=== PATIENT | female | born 1940 | race Caucasian/White ===

== ENCOUNTER 2017-07-12 14:48 | Inpatient (IN) | payer OTHER, MEDICAID ==
[~2017-07-12] VITALS: Ht 154.9 cm; Wt 69.9 kg
[2017-07-12 15:15] VITALS: BP 123/61
--- NOTE | 2017-07-12 15:50 | NUR ---
PATIENT BIB [facility] FROM [facility] WITH C/O TACHYCARDIA HR 133, FEVER 100.3 HX; SEPSIS, DM, KOREAN SPEAKING, AAOX4, LUNGS CLEAR BL; ST ON MONITOR; PT DENIES CP, SOB, OR COUGH AT THIS TIME; DENIES N/V/D; SKIN IS PINK/WARM/DRY; PATIENT STATES PAIN OF 0/10 AT THIS TIME; VSS; PATIENT POSITIONED FOR COMFORT; HOB ELEVATED; BEDRAILS UP X2; BED DOWN. ER MD MADE AWARE OF PT STATUS.
[2017-07-12] MEDS ORDERED: PIPERACILLIN/TAZOBACTAM 3.375 GM in DEXTROSE 5% 50 ML IV ONE (17:15)
[2017-07-12] MEDS ORDERED: NACL 0.9% 2,100 ML IV ONE (17:15)
[2017-07-12 18:07] LABS: HEMATOCRIT 32.8 % (36-48); HEMOGLOBIN 10.6 g/dL (12.0-16.0); MEAN CORPUSCULAR HEMOGLOBIN 27 pg (27-31); MEAN CORPUSCULAR HGB CONC 32 g/dL (33-37); MEAN CORPUSCULAR VOLUME 84 fL (80-94); PLATELET COUNT (AUTO) 413 K/uL (140-450); RED BLOOD CELL COUNT(AUTO) 3.91 MIL/uL (4.20-5.40); RED CELL DISTRIBUTION WIDTH 13.1 % (11.6-13.7); WHITE BLOOD COUNT (AUTO) 16.7 K/uL (4.8-10.8)
[2017-07-12 18:14] LABS: BILIRUBIN,URINE NEGATIVE (NEGATIVE); BLOOD, URINE TRACE-L (NEGATIVE); LEUKOCYTE ESTERASE ,URINE TRACE (NEGATIVE); NITRITE, URINE NEGATIVE (NEGATIVE); UGLUCOSE NEGATIVE (NEGATIVE)
[2017-07-12 18:16] LABS: APPEARANCE,URINE HAZY (CLEAR); COLOR,URINE STRAW (YELLOW)
[2017-07-12 18:26] LABS: LYMPHOCYTES % (MANUAL) 5 % (20-46); MONOCYTES % (MANUAL) 9 % (5-12); PROMYELOCYTES % 1 % (0-0)
[2017-07-12 18:33] LABS: RBC,URINE NONE SEEN /HPF (0-5)
[2017-07-12] MEDS ORDERED: PIPERACILLIN/TAZOBACTAM 3.375 GM VIAL IV ONE (18:34)
[2017-07-12 18:42] LABS: PROTHROMBIN TIME 10.6 secs (10.8-13.4)
[2017-07-12 18:53] LABS: ANION GAP 7.8 (8-16); ASPARTATE AMINOTRANSFERASE 21 U/L (15-37); CARBON DIOXIDE 33.2 mmol/L (21-32); CHLORIDE 99 mmol/L (98-107); CREATININE 2.1 mg/dL (0.6-1.3); GLUCOSE 99 mg/dL (74-106); LIPASE 111 U/L (73-393); SODIUM SERUM 136 mmol/L (136-145); TOTAL BILIRUBIN 0.3 mg/dL (0.0-1.0); UREA NITROGEN, BLOOD 35 mg/dL (7-18)
[2017-07-12 19:05] LABS: CREATINE KINASE MB 0.3 ng/mL (0-3.6)
--- NOTE | 2017-07-12 19:10 | NUR ---
REPORT GIVEN TO JAIRO BETHEA FOR CONTINUE OF CARE, PT IS IN STABLE CONDITION AT THIS TIME.
[2017-07-12] MEDS: NACL 0.9% 1,000 ML IV SCH ×2 (21:13→22:53)
[2017-07-12] MEDS ORDERED: ACETAMINOPHEN 325 MG TAB PO PRN (21:15)
[2017-07-12] MEDS ORDERED: HYDROcodone/APAP 7.5/325 MG 1 TAB PO PRN (21:15)
[2017-07-12] MEDS ORDERED: ONDANSETRON 4 MG/2 ML VIAL IVP PRN (21:15)
[2017-07-12] MEDS ORDERED: DEXTROSE 50% 50 ML SYR IVP PRN (21:55)
[2017-07-12 22:10] VITALS: BP 151/59
[2017-07-12] MEDS ORDERED: LACTULOSE 20 GM/30 ML UDC PO PRN (22:10)
[2017-07-12] MEDS ORDERED: ALBUTEROL SULFATE/IPRATROPIU 3 ML SOL IH PRN (22:10)
--- NOTE | 2017-07-12 22:10 | NUR ---
Admitted from ER TO TELEMETRY UNIT , with chief complaint of ABDOMINAL PAIN, FEVER , 76 y/o ,Female, Cooperative, AWAKE, A/OX4 X4, RESPIRATION EVEN AND UNLABORED. ON 02 AT 2 LITERS VIA N/C, SATURATING 98%. ABDOMEN SOFT, DISTENDED. STATED ABLE TO HAVE BM EVERYDAY. HEAD TO TOE ASSESSMENT DONE WITH JAIRO LOMBARDI, SKIN INTACT. NOTED SMALL BRUISES AT THE RIGHT ARM DUE TO IV, PATIENT WAS CONFINED IN [facility] A MONTH AGO, WAS TRANSFERRED TO [facility] FOR PT TREATMENT, STAYED THERE FOR ALMOST THREE WEEKS AND WAS ABOUT TO GO HOME TOMORROW. PATIENT USES CANE AND WALKER TO AMBULATE. PLAN OF CARE DISCUSSED WITH PATIENT AND DAUGHTER, VERBALIZED UNDERSTANDING. DENIES PAIN 0/10. ST ON TELEMONITORING, HR -112. SAFETY MEASURES ENFORCED, FALL RISK. AFEBRILE AT THIS TIME. oriented to call light, bed, phone,television, bathroom, smoking policy,visiting hours, procedures, ID bracelet on. Belongings list checked.
--- NOTE | 2017-07-12 22:10 | NUR ---
Patient will be admitted to care of DR. WHITNEY. Admited to TELEMETRY UNIT. Will go to room 121A. Belongings list completed. BED SIDE REPORT GIVEN TO JAIRO WOLFE. DAUGHTER AT BED SIDE AND PT STABLE UPON ADMISSION.
[2017-07-12] MEDS ORDERED: ALBU3SOL21 IH (22:22)
[2017-07-12] MEDS ORDERED: DULO30EC PO (22:22)
[2017-07-12] MEDS ORDERED: INSU10SU2 SC (22:22)
[2017-07-12] MEDS ORDERED: NOVR SUBQ (22:22)
[2017-07-12] MEDS ORDERED: SIME80CT70 PO ×2 (22:22→23:08)
[2017-07-12] MEDS ORDERED: LACT10SO1 PO (22:23)
[2017-07-12] MEDS ORDERED: SITA100T8 PO (22:23)
[2017-07-12] MEDS ORDERED: FURO-570 PO (22:23)
[2017-07-12] MEDS ORDERED: BROM3SOL OP (22:23)
[2017-07-12] MEDS ORDERED: FAMO-90 PO (22:23)
[2017-07-12] MEDS ORDERED: SIMV20TA1 PO (22:23)
[2017-07-12] MEDS ORDERED: CLOP75TA26 PO (22:23)
[2017-07-12] MEDS ORDERED: XALOS OP (22:23)
[2017-07-12] MEDS ORDERED: DOCU-299 PO (22:23)
[2017-07-12] MEDS ORDERED: GLIP5TAB4 PO (22:23)
[2017-07-12] MEDS ORDERED: BRIM5SOL3 OP (22:23)
[2017-07-12] MEDS ORDERED: AMLO5TAB PO (22:23)
[2017-07-12] MEDS ORDERED: PENT400T3 PO (22:23)
[2017-07-12] MEDS ORDERED: GABA250S1 PO (22:23)
[2017-07-12] MEDS ORDERED: BRIN10SU OP (22:24)
[2017-07-12] MEDS ORDERED: MULT-1328 PO (23:13)
[2017-07-12 23:18] LABS: CHOL/HDL RATIO 3.8 (1-4.5); FREE T4 (FREE THYROXINE) 0.93 ng/dL (0.76-1.46); MAGNESIUM 1.6 mg/dL (1.8-2.4); PHOSPHORUS 2.1 mg/dL (2.5-4.9); THYROID STIMULATING HORMONE 1.09 uIU/mL (0.34-3.74)
[2017-07-13] MEDS ORDERED: SIMETHICONE 40 MG/0.6 ML PO SCH
--- NOTE | 2017-07-13 | NUR ---
PLACED A BEDSIDE COMMODE, INSTRUCTED PATIENT TO CALL NURSE FOR ASSISTANCE WHEN GETTING OUT OF BED TO GO TO THE COMMODE.
[2017-07-13] MEDS: MAG SULF 2000 MG/WATER PREMIX 100 ML IV SCH ×2 (02:18→04:31)
--- NOTE | 2017-07-13 02:18 | NUR ---
MAGNESIUM LEVEL - 1.6, MG RIDER STARTED BY JAIRO LOMBARDI ORDERED.
[2017-07-13] MEDS ORDERED: MAG SULF 2000 MG/WATER PREMIX 50 ML IV ONE (02:28)
[2017-07-13 04:00] VITALS: BP 144/61
--- NOTE | 2017-07-13 04:00 | NUR ---
SLEEPING COMFORTABLY IN BED.
[2017-07-13] MEDS ORDERED: PENTOXIFYLLINE 400 MG TABER PO SCH (05:00)
[2017-07-13] MEDS ORDERED: NON-FORMULARY ITEM (Brimonidine Tartrate* (Alphagan P 0.1% Ophthalmic Soln*) 1 DROP) OP SCH (05:00)
[2017-07-13] MEDS ORDERED: BRINZOLAMIDE OP SCH (05:00)
[2017-07-13] MEDS: BLOOD GLUCOSE MONITORING 1 DEV DEV FS SCH ×4 (05:56→21:32)
[2017-07-13] MEDS ORDERED: SIMETHICONE 80 MG TAB.CHEW PO PRN (06:00)
[2017-07-13] MEDS: INSULIN LISPRO SLIDING SCALE 100 UNITS/ML VIAL SUBQ PRN ×4 (06:01→21:34)
--- NOTE | 2017-07-13 06:10 | NUR ---
TAKEN TO RADIOLOGY FOR CT OF ABDOMEN AND PELVIS VIA W/C ACCOMPANIED BY SOC ANALYST.
--- NOTE | 2017-07-13 06:45 | NUR ---
BACK FROM RADIOLOGY. WILL ENDORSE TO AM NURSE FOR CONTINUITY OF CARE.
[2017-07-13 06:52] LABS: HEMATOCRIT 28.7 % (36-48); HEMOGLOBIN 9.3 g/dL (12.0-16.0); MEAN CORPUSCULAR HEMOGLOBIN 28 pg (27-31); MEAN CORPUSCULAR HGB CONC 33 g/dL (33-37); MEAN CORPUSCULAR VOLUME 86 fL (80-94); PLATELET COUNT (AUTO) 335 K/uL (140-450); RED BLOOD CELL COUNT(AUTO) 3.36 MIL/uL (4.20-5.40); RED CELL DISTRIBUTION WIDTH 13.2 % (11.6-13.7); WHITE BLOOD COUNT (AUTO) 18.1 K/uL (4.8-10.8)
[2017-07-13] MEDS: NACL 0.9% 1,000 ML IV SCH ×2 (07:13→17:48)
[2017-07-13 07:22] LABS: ANION GAP 12.2 (8-16); CARBON DIOXIDE 28.6 mmol/L (21-32); CHLORIDE 100 mmol/L (98-107); GLUCOSE 145 mg/dL (74-106); POTASSIUM 3.8 mmol/L (3.5-5.1); SODIUM SERUM 137 mmol/L (136-145); UREA NITROGEN, BLOOD 28 mg/dL (7-18)
--- NOTE | 2017-07-13 07:30 | NUR ---
RECEIVED PT FROM REVENUE COORDINATOR RN. PT SLEEPING BUT EASILY AWAKING BY INITIAL ASSESSMENT, ON O2 NC 2L/MIN, NO S/S OF RESPIRATORY DISTRESS NOTED. IV SITE INTACT AND PATENT WITH NS AT 100 MLS/HR, PT ABLE TO MOVE ALL HER EXTREMITIES, CALL LIGHT IN REACH, WILL CONTINUE TO MONITOR.
[2017-07-13 07:32] LABS: PHOSPHORUS 3.6 mg/dL (2.5-4.9)
[2017-07-13 08:00] VITALS: BP 148/60
[2017-07-13 08:44] LABS: LYMPHOCYTES % (MANUAL) 10 % (20-46); MONOCYTES % (MANUAL) 7 % (5-12)
[2017-07-13] MEDS ORDERED: INSULIN NPH HUM/REG INSULIN HM 100 UNIT/ML 10 ML VIAL SQ SCH ×2 (09:00)
[2017-07-13] MEDS ORDERED: DOCUSATE SODIUM 100 MG GELCAP PO SCH (09:00)
[2017-07-13] MEDS ORDERED: BROMFENAC SODIUM OP SCH (09:00)
--- NOTE | 2017-07-13 09:05 | NUR ---
PATIENT HAS BEEN SCREENED AND CATEGORIZED HIGH NUTRITION RISK. PATIENT WILL BE SEEN WITHIN 1-2 DAYS OF ADMISSION. 07/12/18-07/13/[address]
[2017-07-13] MEDS: GABAPENTIN 300 MG CAP PO SCH (09:19)
[2017-07-13] MEDS: FUROSEMIDE 40 MG TAB PO SCH ×2 (09:19→20:57)
[2017-07-13] MEDS: DOCUSATE SODIUM 100 MG GELCAP PO SCH ×2 (09:19→20:56)
[2017-07-13] MEDS: MULTIVITAMIN/MINERALS 1 TAB PO SCH (09:19)
[2017-07-13] MEDS: CLOPIDOGREL 75 MG TAB PO SCH (09:20)
[2017-07-13] MEDS: DULoxetine 30 MG CAPDR PO SCH (09:20)
[2017-07-13] MEDS: amLODIPine 5 MG TAB PO SCH (09:20)
[2017-07-13] MEDS: LACTOBACILLUS RHAMNOSUS GG 1 EACH CAP PO SCH (09:20)
[2017-07-13] MEDS: FAMOTIDINE 20 MG TAB PO SCH (09:20)
[2017-07-13] MEDS: SODIUM PHOS / POTASSIUM PHOS 1 PKT PDR PO SCH (09:21)
[2017-07-13] MEDS: SIMVASTATIN 20 MG TAB PO SCH (09:25)
[2017-07-13] MEDS: glipiZIDE 5 MG TAB PO SCH ×2 (09:26→20:57)
[2017-07-13] MEDS ORDERED: TAMSULOSIN 0.4 MG CAP PO SCH (11:00)
--- NOTE | 2017-07-13 11:34 | NUR ---
FINGER BS 354, SLIDING SCALE INSULIN 10 UNITS GIVEN ORDERED.
--- NOTE | 2017-07-13 11:53 | NUR ---
OFFERED PT BEDPAN, PT HAD CLEAR YELLOW URINE 250 MLS
[2017-07-13 12:00] VITALS: BP 140/58
--- NOTE | 2017-07-13 12:58 | NUR ---
lunch tray served, pt's son at bedside, updated pt's condition.
[2017-07-13] MEDS ORDERED: BISACODYL 5 MG TABEC PO PRN (13:35)
--- NOTE | 2017-07-13 13:35 | NUR ---
FAXED INITIAL REVIEW TO [facility] [phone] PHONE JAEL [phone] SPOKE JAEL FROM [facility]. SHE SAID TO ALSO FAX REVIEW TO [facility] [address] FAX [phone] PHONE [phone]
[2017-07-13] MEDS: metroNIDAZOLE 500 MG/NS PREMIX 100 ML IV SCH ×2 (14:17→20:13)
--- NOTE | 2017-07-13 15:08 | NUR ---
PT RESTING IN BED, NO S/S OF RESPIRATORY DISTRESS NOTED.
--- NOTE | 2017-07-13 15:59 | NUR ---
07/13/2017 RD INITIAL ASSESSMENT COMPLETED PT TO CONSUME >75% EST KCAL AND PRO NEEDS WITHIN 2-3 DAYS NUTRITION RELATED LABS WNL WITHIN 2-3 DAYS DIETITIAN WILL MONITOR PO INTAKE, NUTRITION-RELATED LABS TRENDING WNL, SKIN INTEGRITY, WEIGHTS, GI FUNCTION. DISCHARGE PLAN:PATEIENT SHOULD BE ABLE TO CONTINUE WITH CURRENT DIET UPON DISCHARGE. ANALY SCHWARTZ RD
[2017-07-13 16:00] VITALS: BP 132/58
[2017-07-13] MEDS ORDERED: BISACODYL 5 MG TABEC PO SCH (17:00)
[2017-07-13] MEDS ORDERED: INSULIN NPH HUM/REG INSULIN HM 100 UNIT/ML 10 ML VIAL SUBQ SCH (17:00)
--- NOTE | 2017-07-13 17:00 | NUR ---
FINGER BS CHECKED, SLIDING SCALE INSULIN 10 UNITS SUBQ GIVEN ORDER.
--- NOTE | 2017-07-13 18:30 | NUR ---
PT'S DAUGHTER AND SON AT BEDSIDE, ASSISTED PT TO BATHROOM.
--- NOTE | 2017-07-13 18:52 | NUR ---
[facility] TRANSPORTATION TEAM LEFT UNIT. Addendum: 07/13/17 at 1858 by Nichol Ngo RN ROSALINA HEATH
--- NOTE | 2017-07-13 19:00 | NUR ---
REPORT GIVEN TO SUPERVISOR POLISHING RN. PT VITALS STABLE AT THIS TIME.
--- NOTE | 2017-07-13 19:00 | NUR ---
Patient's Plan of Care was discussed and reviewed with HELPER/DRIVER: YANETH GUSTAFSON
--- NOTE | 2017-07-13 19:01 | NUR ---
RECD. RESTING IN BED, AWAKE, A/OX4. RESPIRATION EVEN AND UNLABORED. ON AT 2 LITERS VIA N/C 02 SAT - 98%. IV OF NS AT 100 ML/HR INFUSING, RIGHT FOREARM G20. SAFETY MEASURES ENFORCED. PATIENT IS INCONTINENT. INSTRUCTED TO CALL NURSE BEFORE GETTING OOB, ORIENTED ON HOW TO USE CALL LIGHT. PLAN OF CARE FOR THE SHIFT DISCUSSED WITH PATIENT AND DAUGHTER, VERBALIZED UNDERSTANDING. DENIES PAIN 0/10.
[2017-07-13 20:00] VITALS: BP 155/52
--- NOTE | 2017-07-13 21:00 | NUR ---
INFORMED DR. WAGNER, PATIENT DAUGHTER WANTS HUMULIN 70/30 THAT THE PATIENT TAKES AT HOME TO BE ORDERED HERE INSTEAD OF THE NPH.
--- NOTE | 2017-07-13 21:30 | NUR ---
ATE 100% OF SNACK FOR THE NIGHT.
[2017-07-13] MEDS: INSULIN NPH HUMAN ISOPHANE 100 UNIT/ML VIAL SUBQ SCH (21:37)
[2017-07-14] VITALS: BP 152/50
[2017-07-14] MEDS: NACL 0.9% 1,000 ML IV SCH (03:28)
[2017-07-14 04:00] VITALS: BP 116/52
[2017-07-14] MEDS: metroNIDAZOLE 500 MG/NS PREMIX 100 ML IV SCH ×2 (04:03→13:12)
[2017-07-14 05:57] LABS: BASOPHILS # (AUTO) 0.1 K/uL (0.00-0.22); BASOPHILS % (AUTO) 0.7 % (0.0-2.0); EOSINOPHILS # (AUTO) 0.1 K/uL (0-0.4); EOSINOPHILS % (AUTO) 1.1 % (0.0-4.0); HEMATOCRIT 26.4 % (36-48); HEMOGLOBIN 8.7 g/dL (12.0-16.0); LYMPHOCYTES # (AUTO) 1.5 K/uL (2.5-16.5); LYMPHOCYTES % (AUTO) 11.7 % (20.5-51.1); MEAN CORPUSCULAR HEMOGLOBIN 28 pg (27-31); MEAN CORPUSCULAR HGB CONC 33 g/dL (33-37); MEAN CORPUSCULAR VOLUME 85 fL (80-94); MONOCYTES # (AUTO) 1.2 K/uL (0.8-1.0); MONOCYTES % (AUTO) 9.4 % (1.7-9.3); NEUTROPHILS # (AUTO) 9.7 K/uL (1.8-7.7); NEUTROPHILS % (AUTO) 77.1 % (42.2-75.2); PLATELET COUNT (AUTO) 310 K/uL (140-450); RED BLOOD CELL COUNT(AUTO) 3.11 MIL/uL (4.20-5.40); RED CELL DISTRIBUTION WIDTH 13.5 % (11.6-13.7); WHITE BLOOD COUNT (AUTO) 12.6 K/uL (4.8-10.8)
--- NOTE | 2017-07-14 06:00 | NUR ---
FOLLOW UP WITH DR. WAGNER REGARDING ORDER FOR INSULIN 70/30, STATED ALREADY PUT IN THE MED RECONCILIATION.
[2017-07-14 06:18] LABS: ANION GAP 11.1 (8-16); CARBON DIOXIDE 29.9 mmol/L (21-32); CHLORIDE 101 mmol/L (98-107); CREATININE 1.9 mg/dL (0.6-1.3); GLUCOSE 327 mg/dL (74-106); SODIUM SERUM 138 mmol/L (136-145); UREA NITROGEN, BLOOD 30 mg/dL (7-18)
[2017-07-14 06:24] LABS: MAGNESIUM 2.8 mg/dL (1.8-2.4); PHOSPHORUS 4.5 mg/dL (2.5-4.9)
[2017-07-14] MEDS: BLOOD GLUCOSE MONITORING 1 DEV DEV FS SCH ×4 (06:32→21:57)
[2017-07-14] MEDS: INSULIN NPH HUMAN ISOPHANE 100 UNIT/ML VIAL SUBQ SCH ×2 (06:44→22:05)
[2017-07-14] MEDS: INSULIN LISPRO SLIDING SCALE 100 UNITS/ML VIAL SUBQ PRN ×4 (06:46→21:59)
--- NOTE | 2017-07-14 07:05 | NUR ---
ABLE TO SLEEP WELL. CONDITION REMAIN STABLE. WILL ENDORSE TO AM NURSE FOR CONTINUITY OF CARE.
--- NOTE | 2017-07-14 07:06 | NUR ---
RECEIVED REPORT FROM CAMP HOUSEKEEPER NURSE YANETH AT BEDSIDE FOR CONTINUITY OF CARE. PT IN STABLE CONDITION.
[2017-07-14 08:00] VITALS: BP 139/50
[2017-07-14] MEDS: DOCUSATE SODIUM 100 MG GELCAP PO SCH ×3 (09:00→22:09)
[2017-07-14] MEDS ORDERED: INSULIN NPH HUM/REG INSULIN HM 100 UNIT/ML 10 ML VIAL SUBQ SCH (09:00)
[2017-07-14] MEDS: DULoxetine 30 MG CAPDR PO SCH (09:11)
[2017-07-14] MEDS: SODIUM PHOS / POTASSIUM PHOS 1 PKT PDR PO SCH (09:11)
[2017-07-14] MEDS: TAMSULOSIN 0.4 MG CAP PO SCH (09:11)
[2017-07-14] MEDS: LACTOBACILLUS RHAMNOSUS GG 1 EACH CAP PO SCH (09:12)
[2017-07-14] MEDS: FAMOTIDINE 20 MG TAB PO SCH (09:12)
[2017-07-14] MEDS: GABAPENTIN 300 MG CAP PO SCH (09:12)
[2017-07-14] MEDS: SIMVASTATIN 20 MG TAB PO SCH (09:12)
[2017-07-14] MEDS: glipiZIDE 5 MG TAB PO SCH ×2 (09:13→22:11)
[2017-07-14] MEDS: MULTIVITAMIN/MINERALS 1 TAB PO SCH (09:13)
[2017-07-14] MEDS: CLOPIDOGREL 75 MG TAB PO SCH (09:13)
[2017-07-14] MEDS: FUROSEMIDE 40 MG TAB PO SCH ×2 (09:14→22:12)
[2017-07-14] MEDS: amLODIPine 5 MG TAB PO SCH (09:14)
[2017-07-14] MEDS: PENTOXIFYLLINE 400 MG TABER PO SCH (09:34)
--- NOTE | 2017-07-14 09:40 | NUR ---
CALLED PT'S SON CRUZ [phone]. SON WILL GO HOME AND BRING PT'S EYE DROPS FROM HOME.
--- NOTE | 2017-07-14 11:00 | NUR ---
PT'S SON CRUZ CAME AND BROUGHT HOME EYE DROPS. DROPPED OF MEDS TO PHARMACY.
[2017-07-14 12:00] VITALS: BP 162/63
--- NOTE | 2017-07-14 12:30 | NUR ---
PT STATED SHE COULD NOT EAT LUNCH TRAY. SAID "FOOD IS HARD TO EAT." AND REQUESTED SOFT FOOD DIET. REPORTED TO DR. CHOUDHARY TO CHANGE DIET TO MECHANICAL SOFT.
[2017-07-14] MEDS: PATIENTS OWN EENT OP SCH ×3 (14:12→17:32)
--- NOTE | 2017-07-14 15:36 | NUR ---
[facility] [phone] PHONE [phone] CM ANY FAXED CONCURRENT REVIEW TO [facility] [phone] PHON [phone] I SPOKE WITH VARGHESE AT [facility], AND HE SAID OF 07/15/17, THIS PATIENT WILL NO LONGER BE WITH [facility]. I CALLED CHAD, NEWS WIRE PHOTO OPERATOR AND INFORMED HER.
[2017-07-14 16:00] VITALS: BP 138/62
--- NOTE | 2017-07-14 17:43 | NUR ---
PT RESTING IN BED WITH NO SIGNS OF DISTRESS. ADMINISTERED SCHEDULED MEDS AND EYE DROPS. BS WAS 267. COVERED INSULIN PER SLIDING SCALE. PT TOLERATED MEDS WELL. PT DENIES PAIN. BED IN LOW POSITION, WHEELS LOCKED, CALL LIGHT WITHIN REACH. WILL CONTINUE TO MONITOR.
--- NOTE | 2017-07-14 19:28 | NUR ---
ENDORSED PT TO [place] BAND WRAPPER NURSE FARHANA AT BEDSIDE FOR CONTINUITY OF CARE. PT'S DAUGHTER AT BEDSIDE. EXPLAINED ISOLATION STATUS FOR PT DUE TO URINE POSITIVE FOR E.COLI, MDRO AND ESBL. PT AND DAUGHTER VERBALIZED UNDERSTANDING. PT IN STABLE CONDITION.
--- NOTE | 2017-07-14 19:30 | NUR ---
RECEIVED PT FROM KARLEY RN PT CROATIAN SPEAKER AAOX3 ON TELEMETRY ST IV ON LEFT ARM INFUSING WELL NOT DISTRESS NOTED AT THIS TIME PT ON CONTACT ISOLATION FOR ESBL ON URINE RELATIVES AT BED SIDE INITIAL ASSESSMENT DONE
[2017-07-14 20:00] VITALS: BP 162/65
--- NOTE | 2017-07-14 21:30 | NUR ---
BLOOD SUGAR TEST 205 COVERAGE WITH HUMALOG SUB Q 4 UNITS ON RT ARM
[2017-07-14] MEDS: LATANOPROST 0.005% OP 2.5 ML BTL OP SCH (22:13)
[2017-07-15] VITALS: BP 127/43
--- NOTE | 2017-07-15 | NUR ---
PT SLEEPING ON 02 2 LTS VIA NC ON TELEMETRY ST REPOSITIONED Q2H NOT DISTRESS NOTED
[2017-07-15] MEDS ORDERED: PIPERACILLIN/TAZOBACTAM 2.25 GM VIAL IV ONE (00:42)
[2017-07-15] MEDS: PIPER/TAZO 2.25GM/D5W PREMIX 50 ML IV SCH ×4 (00:50→18:10)
[2017-07-15 04:00] VITALS: BP 152/70
--- NOTE | 2017-07-15 04:00 | NUR ---
SPONGE BATH GIVEN LINEN CHANGED ON TELE ST NOTDISTRESS NOTED
[2017-07-15] MEDS: NACL 0.9% 1,000 ML IV SCH ×2 (05:00→23:49)
[2017-07-15] MEDS: BLOOD GLUCOSE MONITORING 1 DEV DEV FS SCH ×4 (05:36→21:00)
--- NOTE | 2017-07-15 05:36 | NUR ---
PT HAS A BLOOD SUGAR LOW 58 AND PT ASYMPTOMATIC JUICE GIVEN AND WILL BE MONITORING
[2017-07-15 05:54] LABS: BASOPHILS % (AUTO) 0.4 % (0.0-2.0); EOSINOPHILS # (AUTO) 0.2 K/uL (0-0.4); EOSINOPHILS % (AUTO) 1.9 % (0.0-4.0); HEMATOCRIT 26.3 % (36-48); HEMOGLOBIN 8.2 g/dL (12.0-16.0); LYMPHOCYTES # (AUTO) 1.6 K/uL (2.5-16.5); LYMPHOCYTES % (AUTO) 15.3 % (20.5-51.1); MEAN CORPUSCULAR HEMOGLOBIN 27 pg (27-31); MEAN CORPUSCULAR HGB CONC 31 g/dL (33-37); MEAN CORPUSCULAR VOLUME 86 fL (80-94); MONOCYTES # (AUTO) 0.9 K/uL (0.8-1.0); MONOCYTES % (AUTO) 8.4 % (1.7-9.3); NEUTROPHILS # (AUTO) 7.9 K/uL (1.8-7.7); PLATELET COUNT (AUTO) 344 K/uL (140-450); RED BLOOD CELL COUNT(AUTO) 3.08 MIL/uL (4.20-5.40); RED CELL DISTRIBUTION WIDTH 13.2 % (11.6-13.7); WHITE BLOOD COUNT (AUTO) 10.6 K/uL (4.8-10.8)
--- NOTE | 2017-07-15 06:10 | NUR ---
AFTER HJUICE TAKENBLOODSUGAR TAKEN IS [address] NOT DISTRESS NOTE
[2017-07-15] MEDS: INSULIN NPH HUMAN ISOPHANE 100 UNIT/ML VIAL SUBQ SCH ×2 (06:30→22:15)
[2017-07-15 06:43] LABS: MAGNESIUM 2.1 mg/dL (1.8-2.4); PHOSPHORUS 3.4 mg/dL (2.5-4.9)
[2017-07-15 06:46] LABS: ANION GAP 11.9 (8-16); CARBON DIOXIDE 27.6 mmol/L (21-32); CHLORIDE 104 mmol/L (98-107); CREATININE 1.6 mg/dL (0.6-1.3); GLUCOSE 69 mg/dL (74-106); POTASSIUM 3.5 mmol/L (3.5-5.1); SODIUM SERUM 140 mmol/L (136-145); UREA NITROGEN, BLOOD 28 mg/dL (7-18)
--- NOTE | 2017-07-15 07:30 | NUR ---
RECEIVED PT FROM HOP FARM WORKER RN. PT IS AAOX4, ON TELEMETRY, O2 AT 2L VIA NC. SINUS TACHY. NO S/S OF ACUTE DISTRESS AT THIS TIME. IV NOTED ON LEFT FA, INFUSING WELL, ASYMPTOMATIC. PT ON CONTACT ISOLATION FOR ESBL MDRO IN URINE. INITIAL ASSESSMENT DONE, DISCUSSED PLAN OF CARE WITH PT, PT VERBALIZED UNDERSTANDING. BED IN LOWEST POSITION. ALL SAFETY PRECAUTIONS MET. WILL CONTINUE TO MONITOR.
[2017-07-15 08:00] VITALS: BP 169/65
[2017-07-15] MEDS: DOCUSATE SODIUM 100 MG GELCAP PO SCH ×3 (09:00→22:05)
[2017-07-15] MEDS: PATIENTS OWN EENT OP SCH ×7 (09:08→17:00)
[2017-07-15] MEDS: SODIUM PHOS / POTASSIUM PHOS 1 PKT PDR PO SCH (09:09)
[2017-07-15] MEDS: CLOPIDOGREL 75 MG TAB PO SCH (09:11)
[2017-07-15] MEDS: LACTOBACILLUS RHAMNOSUS GG 1 EACH CAP PO SCH (09:11)
[2017-07-15] MEDS: glipiZIDE 5 MG TAB PO SCH (09:11)
[2017-07-15] MEDS: FUROSEMIDE 40 MG TAB PO SCH ×2 (09:11→22:05)
[2017-07-15] MEDS: DULoxetine 30 MG CAPDR PO SCH (09:12)
[2017-07-15] MEDS: TAMSULOSIN 0.4 MG CAP PO SCH (09:12)
[2017-07-15] MEDS: GABAPENTIN 300 MG CAP PO SCH (09:12)
[2017-07-15] MEDS: FAMOTIDINE 20 MG TAB PO SCH (09:13)
[2017-07-15] MEDS: SIMVASTATIN 20 MG TAB PO SCH (09:13)
[2017-07-15] MEDS: MULTIVITAMIN/MINERALS 1 TAB PO SCH (09:13)
[2017-07-15] MEDS: amLODIPine 5 MG TAB PO SCH (09:13)
--- NOTE | 2017-07-15 09:20 | NUR ---
PT HAD 1 BM ON BEDSIDE COMMODE. BROWN SOFT STOOL. CLEANED PT, CHANGED CHUX. NO SOB NOTED.
--- NOTE | 2017-07-15 09:35 | NUR ---
MEDS HAS BEEN GIVEN. PT PREFER TO TAKE MEDS WITH [facility]. EYE DROPS GIVEN, 5 MIN APART FOR EACH EYE DROP. PT TOLERATED WELL.
[2017-07-15] MEDS: PENTOXIFYLLINE 400 MG TABER PO SCH (09:40)
[2017-07-15 12:00] VITALS: BP 137/55
[2017-07-15] MEDS: INSULIN LISPRO SLIDING SCALE 100 UNITS/ML VIAL SUBQ PRN ×3 (12:34→22:19)
--- NOTE | 2017-07-15 14:00 | NUR ---
PT IS SLEEPING. NO S/S OF DISTRESS NOTED.
--- NOTE | 2017-07-15 14:30 | NUR ---
CM NOTE CONCURRENT REVIEW FOR CRITERIA DONE
[2017-07-15 16:00] VITALS: BP 142/62
--- NOTE | 2017-07-15 18:00 | NUR ---
PT IS EATING DINNER, DAUGHTER AT BEDSIDE, NO S/S OF ACUTE DISTRESS NOTED.
[2017-07-15] MEDS: metFORMIN 850 MG TAB PO SCH (18:09)
--- NOTE | 2017-07-15 19:35 | NUR ---
ENDORSE PT TO ASSEMBLY ADJUSTER RN. PT IS IN STABLE CONDITION.
--- NOTE | 2017-07-15 19:36 | NUR ---
RECEIVED PT FROM NURSE IBRAHIM RN. PT AOX4, ON O2 2L/NC. BEDREST, NEEDS ASSISTNCE WITH BEDSIDE COMMODE, DIAPER AVAILABLE, SKIN INTACT. IVF ON RIGHT FA INFUSING WELL, INTACT AND PATENT. CONTACT PRECAUTIONS FOR ESBL MDRO. ON TELEMETRY-ST 109. RELATIVE AT BEDSIDE. BED IN LOWEST POSITION. CALL LIGHT WITHIN REACH. WILL CONTINUE TO MONITOR.
[2017-07-15 20:00] VITALS: BP 143/60
[2017-07-15] MEDS: LATANOPROST 0.005% OP 2.5 ML BTL OP SCH (22:04)
[2017-07-15] MEDS: MEROPENEM 1,000 MG in NACL 0.9% 100 ML IV SCH (22:04)
--- NOTE | 2017-07-15 22:15 | NUR ---
PT TOLERATED MEDICATION WELL. USED BEDSIDE COMMODE. JOHN WISEMAN ASSISTED PT. ON TELEMETRY UNIT - SINUS TACHYCARDIA.
[2017-07-16] VITALS: BP 144/50
--- NOTE | 2017-07-16 | NUR ---
PT ASLEEP AT THIS TIME. BED IN LOWEST POSITION. CALL LIGHT WITHIN REACH. WILL CONTINUE TO MONITOR.
--- NOTE | 2017-07-16 03:00 | NUR ---
PT SLEEPING AT THIS TIME. NO S/S OF RESPIRATORY DISTRESS OR DISCOMFORT. WILL CONTINUE TO MONITOR.
[2017-07-16 04:00] VITALS: BP 158/75
--- NOTE | 2017-07-16 06:09 | NUR ---
BLOOD GLUCOSE 237. WILL ADMINISTER INSULIN PER SLIDING SCALE ORDERED.
[2017-07-16] MEDS: BLOOD GLUCOSE MONITORING 1 DEV DEV FS SCH ×2 (06:16→11:36)
[2017-07-16] MEDS: INSULIN LISPRO SLIDING SCALE 100 UNITS/ML VIAL SUBQ PRN ×2 (06:30→12:00)
[2017-07-16] MEDS: INSULIN NPH HUMAN ISOPHANE 100 UNIT/ML VIAL SUBQ SCH (06:33)
--- NOTE | 2017-07-16 07:07 | NUR ---
PT WILL BE ENDORSED TO AM NURSE IN STABLE CONDITION TO CONTINUE CARE.
--- NOTE | 2017-07-16 07:08 | NUR ---
RECEIVED REPORT FROM DIRECTOR OF EARLY CHILDHOOD NURSE SHEELA AT BEDSIDE FOR CONTINUITY OF CARE. PT IS AWAKE AND ORIENTED. INTRODUCED SELF AND UPDATED BOARD. PT ONO2 NC 2L/MIN, O2 SAT 97%. NO SIGNS OF RESPIRATORY DISTRESS. PT HAD INCONTINENT URINE AND STOOL. GOT UP TO USE BSC WITH ASSIST BY LAB INSTRUCTOR. CHANGED LINENS AND PADS. ASSISTED PT BACK TO BED. SITTING UP EATING BREAKFAST. IV TO R FA 22G INFUSING NS @20ML/HR. SKIN WARM AND DRY. BED IN LOW POSITION, WHEELS LOCKED, CALL LIGHT WITHIN REACH. WILL CONTINUE TO MONITOR.
[2017-07-16 08:00] VITALS: BP 159/72
[2017-07-16] MEDS: PENTOXIFYLLINE 400 MG TABER PO SCH (08:45)
[2017-07-16] MEDS: SODIUM PHOS / POTASSIUM PHOS 1 PKT PDR PO SCH (08:45)
[2017-07-16] MEDS: DULoxetine 30 MG CAPDR PO SCH (08:46)
[2017-07-16] MEDS: LACTOBACILLUS RHAMNOSUS GG 1 EACH CAP PO SCH (08:46)
[2017-07-16] MEDS: FAMOTIDINE 20 MG TAB PO SCH (08:46)
[2017-07-16] MEDS: SIMVASTATIN 20 MG TAB PO SCH (08:46)
[2017-07-16] MEDS: CLOPIDOGREL 75 MG TAB PO SCH (08:47)
[2017-07-16] MEDS: TAMSULOSIN 0.4 MG CAP PO SCH (08:47)
[2017-07-16] MEDS: metFORMIN 850 MG TAB PO SCH (08:47)
[2017-07-16] MEDS: MULTIVITAMIN/MINERALS 1 TAB PO SCH (08:47)
[2017-07-16] MEDS: GABAPENTIN 300 MG CAP PO SCH (08:47)
[2017-07-16] MEDS: PATIENTS OWN EENT OP SCH ×5 (08:48→12:57)
[2017-07-16] MEDS: DOCUSATE SODIUM 100 MG GELCAP PO SCH (08:49)
[2017-07-16] MEDS: amLODIPine 5 MG TAB PO SCH (08:49)
[2017-07-16] MEDS: MEROPENEM 1,000 MG in NACL 0.9% 100 ML IV SCH (08:51)
[2017-07-16] MEDS: FUROSEMIDE 40 MG TAB PO SCH (08:51)
[2017-07-16] MEDS ORDERED: INUL1CTB PO (10:38)
[2017-07-16] MEDS ORDERED: HEPA500056 IM (10:38)
[2017-07-16] MEDS ORDERED: MERO1PDS2 IV (10:38)
--- NOTE | 2017-07-16 11:39 | NUR ---
CALLED [facility] AND SPOKE WITH GRACIELA [phone]. SHE SAID NO REVIEW NEEDED SINCE PATIENT IS MEDICARE FROM 07/15/17. SHE DID ASK FOR THE DISCHARGE SUMMARY TO BE FAXED TO [phone].
--- NOTE | 2017-07-16 11:48 | NUR ---
RECEIVED ORDER FOR PATIENT TO GO TO [facility] FOR IV ANTIBIOTICS. SPOKE WITH VANE AND FAXED THE INQUIRY TO HER. I ALSO INFORMED HER THAT THIS PATIENT IS NOW MEDICARE AND SHE IS IN ISOLATION FOR ESBL IN BLOOD AND URINE. SHE SAID THEY COULD TAKE THE PATIENT AND SHE WILL CALL ME BACK WITH ROOM.
[2017-07-16 12:00] VITALS: BP 152/74
--- NOTE | 2017-07-16 12:00 | NUR ---
CHECKED ON PT IN ROOM. BS WAS 241. ADMINISTERED 4 UNITS INSULIN SUBQ. PT TOLERATED WELL. SITTING UP IN BED EATING LUNCH. NO SIGNS OF DISTRESS. PT DENIES PAIN. WILL CONTINUE TO MONITOR.
--- NOTE | 2017-07-16 14:00 | NUR ---
I call Patient's daughter Lorene Carbajal at to discuss Patient's transport back to [facility] facility today after her discharge from [facility]. I inform her that disease case manager rn Joelle can coordinate and arrange patient's transport back with [facility] with a quote of $47.50 or having the option of picking her up after 3:00pm and transport her back herself. Patient's daughter Lorene stated that she is willing to pay for [facility] and they can call her for payment at her cell phone. I inform her that disease case manager rn will scheduled transport and will let transportation company to call her for payment. Lorene Carbajal agreed and ended the call.
--- NOTE | 2017-07-16 14:21 | NUR ---
RECEIVED CALL FROM VANE [place] [facility]IENT CAN GO TO ROOM 29A UNDER DR. MACHADO AFTER 3P.Elisa SEGURA APARTMENT COORDINATOR SPOKE WITH THE DAUGHTER AKIL AND SHE IS WILLING TO PAY FOR TRANSPORT. GOT QUOTE FROM [facility] FOR $47.50 CALLED [facility] AND SET UP TRANSPORT FOR 5P.Elisa HEATH RN AWARE. DAUGHTER AKIL CALLED AND STATED SHE WILL FILER REPAIRER THE PATIENT FOR TRANSP[place] [facility]
--- NOTE | 2017-07-16 14:36 | NUR ---
CALLED [facility] AND CANCELED TRANSPORT.
--- NOTE | 2017-07-16 14:50 | NUR ---
CALLED [facility] AND GAVE REPORT TO JAIRO BECKFORD. PT'S DAUGHTER WILL COME AND MANAGER INDUSTRIAL PT. GAVE CALL BACK NUMBER.
--- NOTE | 2017-07-16 15:00 | NUR ---
PT D/C'D FOR TRANSFER TO SNF. GAVE D/C FORMS, INSTRUCTIONS, RX, LABS, AND PLAN FOR TRANSFER. PT VERBALIZED UNDERSTANDING AND SIGNED FORMS. REMOVED ID BANDS AND TELE MONITOR. LEFT IV TOR FA 22G SL. PT CHANGED IN ORANGE GOWN. LEFT WITH ALL PERSONAL BELONGINGS AND HOME MEDS. LEFT UNIT VIA WHEELCHAIR ACCOMPANIED BY DAUGHTER WHO IS STEWARDESS SUPERVISOR AT [facility] AND RN. PT LEFT IN STABLE CONDITION.
== END 2017-07-16 15:00 | disposition home or self-care (01) | DRG 871 ==
LOC: MED 14:48 → MTU 21:27
PROVIDERS: ADMIT Family Medicine Sports Medicine; ATTEND Family Medicine Sports Medicine
DX: A41.51 Sepsis due to Escherichia coli [E. coli] (principal); N17.0 Acute kidney failure with tubular necrosis; D68.59 Other primary thrombophilia; E11.22 Type 2 diabetes mellitus with diabetic chronic kidney disease; E11.65 Type 2 diabetes mellitus with hyperglycemia; E11.51 Type 2 diabetes mellitus with diabetic peripheral angiopathy without gangrene; E44.1 Mild protein-calorie malnutrition; N39.0 Urinary tract infection, site not specified; N12 Tubulo-interstitial nephritis, not specified as acute or chronic; K57.32 Diverticulitis of large intestine without perforation or abscess without bleeding; Z16.12 Extended spectrum beta lactamase (ESBL) resistance; E83.42 Hypomagnesemia; H40.9 Unspecified glaucoma; N18.9 Chronic kidney disease, unspecified; I70.209 Unspecified atherosclerosis of native arteries of extremities, unspecified extremity; N20.0 Calculus of kidney; F32.9 Major depressive disorder, single episode, unspecified; K57.90 Diverticulosis of intestine, part unspecified, without perforation or abscess without bleeding; M19.90 Unspecified osteoarthritis, unspecified site; I12.9 Hypertensive chronic kidney disease with stage 1 through stage 4 chronic kidney disease, or unspecified chronic kidney disease; E66.9 Obesity, unspecified; J44.9 Chronic obstructive pulmonary disease, unspecified; Z77.22 Contact with and (suspected) exposure to environmental tobacco smoke (acute) (chronic); K57.30 Diverticulosis of large intestine without perforation or abscess without bleeding; E78.5 Hyperlipidemia, unspecified; K21.9 Gastro-esophageal reflux disease without esophagitis; Z68.29 Body mass index [BMI] 29.0-29.9, adult; Z90.710 Acquired absence of both cervix and uterus; Z95.5 Presence of coronary angioplasty implant and graft; Z80.9 Family history of malignant neoplasm, unspecified; Z82.49 Family history of ischemic heart disease and other diseases of the circulatory system
CPT/HCPCS: 36415; 71045; 80048; 80053; 81001; 82550; 82553; 82948; 83036; 83605; 83690; 83735; 83880; 84100; 84439; 84443; 84484; 85025; 85610; 85730; 87040; 87081; 87086; 87186; 93925; 93970; 96365; 99285; J0696; J1644; J1815; J2185; J2543; J3475; J3490; J7030; J7060; Q0092